=== PATIENT | female | born 1990 ===

== ENCOUNTER 2023-09-07 14:33 | Outpatient (AMB) | payer OTHER, SELFPAY ==
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
== END 2023-09-07 15:25 | disposition home or self-care (01) ==
PROVIDERS: PCP Internal Medicine; Referring Provider Physician Assistant; Visit Provider Physician Assistant
DX: M54.2 Cervicalgia (principal)
CPT/HCPCS: 99204

== ENCOUNTER → 2023-09-07 14:33 | Outpatient (BNVA) | payer OTHER, SELFPAY | PROVIDERS: PCP Internal Medicine; Visit Provider Physician Assistant | DX: M54.2 Cervicalgia (principal) | CPT/HCPCS: 99202 ==

== ENCOUNTER 2024-01-05 14:36 | Outpatient (AMB) | payer OTHER, SELFPAY ==
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
== END 2024-01-05 15:38 | disposition home or self-care (01) ==
PROVIDERS: PCP Internal Medicine; Visit Provider Neurological Surgery
DX: M54.2 Cervicalgia (principal)
CPT/HCPCS: 99213

== ENCOUNTER → 2024-01-05 14:36 | Outpatient (BNVA) | payer OTHER, SELFPAY | PROVIDERS: PCP Internal Medicine; Visit Provider Neurological Surgery | DX: M54.2 Cervicalgia (principal) | CPT/HCPCS: 99212 ==